=== PATIENT | female | born 1930 | race Caucasian/White ===

== ENCOUNTER 2016-09-19 14:38 | Emergency (ER) | payer MEDICARE ==
[~2016-09-19] VITALS: Ht 167.6 cm; Wt 65.8 kg
[~2016-09-19 14:38] MED LIST: ACET-654 PO; AMLO5TAB2 PO; ATIV1TAB10 PO; ATOR1TAB19 PO; CHLO25TA3 PO; COUM1TAB19 PO; DIGO0.127 PO; FERG1TAB PO; GABA-283 PO; LIPI10TA PO; LOPR1TAB7 PO; LORA0.5T PO; LOSA100T36 PO; METO25TA2 PO; MOM30SS PO; MYRB25TA PO; NAPR250T2 PO; NORV5TAB PO; OMEP20CA3 PO; PERCOCET PO; POTA20PO4 PO; REST0.05 OU; TRUSOPT OU; ULTR50TA PO; VITA500C24 PO; VITAD1000T OR; WARF1TAB35 PO; WARF4TAB28 PO; [UNRECOGNIZED DRUG - CODE] OS; calcium with D OR; celebrex; hygroton PO; timolol OU
[2016-09-19] MEDS ORDERED: SPIR25TA2 PO (15:04)
[2016-09-19] MEDS ORDERED: GLIP-163 PO (15:04)
[2016-09-19] MEDS ORDERED: LOSA25TA8 PO (15:09)
[2016-09-19] MEDS ORDERED: TORS10TA3 PO (15:09)
[2016-09-19] MEDS ORDERED: PROBCAP4 PO (15:09)
[2016-09-19] MEDS ORDERED: GLIP2.5T6 PO (15:09)
[2016-09-19] MEDS ORDERED: MORPHINE 2 MG/ML 1ML SYRINGE IV ONE (15:15)
[2016-09-19 15:33] LABS: BASO % 0.4 % (0.0-1.0); EOS # 0.2 K/mm3 (0.0-0.50); EOS % 2.6 % (0.0-3.0); LARGE UNSTAINED CELL # 0.2 K/mm3 (0.0-0.4); LARGE UNSTAINED CELL % 1.8 % (0.0-4.0); LYMPH # 1.7 K/mm3 (1.5-4.5); LYMPH % 19.9 % (24.0-44.0); MEAN CORPUSCULAR HEMOGLOBIN 30.1 pg (27.0-33.0); MEAN CORPUSCULAR VOLUME 91.3 fl (80.0-96.0); MONO # 0.4 K/mm3 (0.0-0.8); MONO % 4.7 % (0.0-5.0); NEUTROPHILS # 6.1 K/mm3 (1.8-7.7); NEUTROPHILS % 70.6 % (36.0-66.0); PLATELET COUNT, AUTOMATED 265 k/mm3 (150-450); RED CELL DISTRIBUTION WIDTH 12.9 % (11.5-14.5); WHITE BLOOD COUNT 8.7 K/mm3 (4.0-10.0)
[2016-09-19 15:39] LABS: INR 2.59
[2016-09-19 16:12] LABS: ANION GAP 7 MEQ/L (8-16); BLOOD UREA NITROGEN 24 MG/DL (7-18); CALCIUM LEVEL 9.3 MG/DL (8.8-10.2); CARBON DIOXIDE LEVEL 30 MEQ/L (21-32); CHLORIDE LEVEL 105 MEQ/L (98-107); CREATININE FOR GFR 0.92 MG/DL (0.55-1.02); DIGOXIN LEVEL 0.8 NG/ML (0.5-2.0); GLOMERULAR FILTRATION RATE > 60.0 (>32); GLUCOSE, FASTING 217 MG/DL (83-110); POTASSIUM SERUM 3.9 MEQ/L (3.5-5.1); SODIUM LEVEL 142 MEQ/L (136-145)
[2016-09-19] MEDS ORDERED: ISOVUE-370 76% 100ML VIAL (Q9967) As Ordered ONE (16:14)
--- NOTE | 2016-09-19 17:23 | REP ---
CT LUMBAR SPINE WITHOUT CONTRAST: HISTORY: Trauma. COMPARISON: MR 10/05/2015 A diffuse disc bulge is present at the L1-2 level. There are 2 mm of retrolisthesis of L1 on 2. There is minimal compression of the thecal sac. There is hypertrophy of the posterior articulating facets. The L1 nerves exit the neural foramina without compression. A diffuse disc bulge is present at the L2-3 level. There is hypertrophy of the ligamenta flava and posterior articulating facets. These findings produce mild central canal stenosis. There is compression of the L2 nerves in the neural foramina. A diffuse disc bulge is present at the L3-4 level. There is hypertrophy of the ligamenta flava and posterior articulating facets. These findings produce mild central canal stenosis. There is compression of the right L3 nerve in the neural foramen . The left L3 nerve exits the neural foramen without compression. A diffuse disc bulge is present at the L4-5 level. There is minimal compression of the thecal sac. There is hypertrophy of the posterior articulating facets. There are 3 mm of grade 1 spondylolisthesis of L4 on 5. The L4 nerves exit the neural foramina without compression. A laminectomy defect is present. The L5-S1 level is incompletely seen. There is hypertrophy of the posterior articulating facets. The L5 nerve exit the neural foramina without compression. The intervertebral discs are decreased in height. Vacuum phenomenon is present at the L2-3 and L3-4 levels. These findings are consistent with disc degeneration. There are old compression fractures of the L1 and L3 vertebral bodies with minimal and mild height loss respectively. There is scoliosis convex to the right. IMPRESSION: 1. Diffuse disc bulge and retrolisthesis at the L1-2 level with minimal thecal sac compression. 2. Mild central canal stenosis at the L2-3 and L3-4 levels secondary to disc bulge, ligamentous, and facet hypertrophy. There is compression of the right L3 nerve in the neural foramen . 3. Diffuse disc bulge at the L4-5 level with minimal thecal sac compression. The laminectomy defect is a new finding. 4. Old compression fractures at the L1 and L3 vertebral bodies. Signed by David Pena MD 09/20/2016 09:06 A
--- NOTE | 2016-09-19 17:50 | REP ---
CT ABDOMEN AND PELVIS WITH IV CONTRAST: TECHNIQUE: Axial contrast enhanced images from the lung bases to the pubic symphysis using 100 mL Isovue 370 intravenous contrast material with multiplanar reformations. Visualized lung bases demonstrate interstitial fibrotic changes. The liver is unremarkable. The patient has had a cholecystectomy. There is mild prominence of the biliary system which is normal in a patient of this age, status post cholecystectomy. The spleen is intact. The adrenals and pancreas appear unremarkable. No renal laceration is seen. There is a left renal cyst. There is no hydronephrosis. There is no abdominal aortic aneurysm. There is no adenopathy, free air or free fluid. There is no bowel wall thickening. I see no pelvic mass. Portions of the inferior pelvis are not well seen due to bilateral metallic prostheses of the hips. The visualized osseous structures appear intact. Old compression deformity of L3 is unchanged since prior MRI of 10/05/2015. There are degenerative changes of the spine and the patient has had a prior lower lumbar laminectomy. IMPRESSION: No free air or free fluid. No evidence of visceral organ injury. No evidence of acute fracture of the visualized osseous structures. Signed by Royer Sigala MD 09/19/2016 08:13 P
[2016-09-19 17:57] VITALS: BP 192/84
--- NOTE | 2016-09-21 11:35 | ED PDOC ---
Post-Departure Follow-Up radiology report faxed to PCP, Lea Conklin MD Sep 21, 2016 11:35
== END 2016-09-19 17:46 | disposition home or self-care (01) ==
LOC: EDBD 14:38 → M ED 16:25
DX: S30.1XXA Contusion of abdominal wall, initial encounter (principal); W01.0XXA Fall on same level from slipping, tripping and stumbling without subsequent striking against object, initial encounter; Y92.531 Health care provider office as the place of occurrence of the external cause; Y93.01 Activity, walking, marching and hiking; Y99.9 Unspecified external cause status; I10 Essential (primary) hypertension; I48.91 Unspecified atrial fibrillation; M51.26 Other intervertebral disc displacement, lumbar region; M48.06 Spinal stenosis, lumbar region; Z87.310 Personal history of (healed) osteoporosis fracture; Z79.01 Long term (current) use of anticoagulants; Z79.899 Other long term (current) drug therapy; Z88.8 Allergy status to other drugs, medicaments and biological substances; Z88.1 Allergy status to other antibiotic agents
CPT/HCPCS: 72131; 74177; 80048; 80162; 85025; 85610; 85730; 96374; 99283; Q9967

== ENCOUNTER → 2016-10-06 | Outpatient (REF) | payer MEDICARE ==
[~2016-10-06] MED LIST changes: +GLIP-163 PO; +GLIP2.5T6 PO; +LOSA25TA8 PO; +PROBCAP4 PO; +SPIR25TA2 PO; +TORS10TA3 PO
== END ==
LOC: M LAB REF 12:00
PROVIDERS: ATTEND Physician Assistant
DX: R31.0 Gross hematuria (principal)

== ENCOUNTER → 2018-04-04 | Outpatient (REF) ==
[2018-04-04 09:44] LABS: HEMATOCRIT 26.4 % (36.0-47.0); HEMOGLOBIN 7.9 g/dl (12.0-15.5); MEAN CORPUSCULAR HEMOGLOBIN 28.8 pg (27.0-33.0); MEAN CORPUSCULAR HGB CONC 29.9 g/dl (32.0-36.5); MEAN CORPUSCULAR VOLUME 96.4 fl (80.0-96.0); PLATELET COUNT, AUTOMATED 280 10^3/uL (150-450); RED BLOOD COUNT 2.74 10^6/uL (4.00-5.40); RED CELL DISTRIBUTION WIDTH 13.9 % (11.5-14.5); WHITE BLOOD COUNT 11.6 10^3/uL (4.0-10.0)
[2018-04-04 10:10] LABS: ANION GAP 8 MEQ/L (8-16); BLOOD UREA NITROGEN 26 MG/DL (7-18); CALCIUM LEVEL 9.9 MG/DL (8.8-10.2); CARBON DIOXIDE LEVEL 30 MEQ/L (21-32); CHLORIDE LEVEL 106 MEQ/L (98-107); CREATININE FOR GFR 0.65 MG/DL (0.55-1.30); GLOMERULAR FILTRATION RATE > 60.0 (>32); GLUCOSE, FASTING 123 MG/DL (70-100); POTASSIUM SERUM 4.1 MEQ/L (3.5-5.1); SODIUM LEVEL 144 MEQ/L (136-145)
== END ==
DX: I48.91 Unspecified atrial fibrillation (principal)

== ENCOUNTER → 2018-04-05 | Outpatient (REF) ==
[2018-04-05 12:20] LABS: IRON (FE) 29 UG/DL (50-170); PERCENT SATURATION 11.1 % (13.2-45.0); TOTAL IRON BINDING CAPACITY 262 UG/DL (250-450)
[2018-04-06 11:39] LABS: TRANSFERRIN 208 mg/dL (200-370)
== END ==
DX: D64.9 Anemia, unspecified (principal)

== ENCOUNTER → 2018-04-06 | Outpatient (REF) ==
[2018-04-06 07:17] LABS: HEMATOCRIT 27.2 % (36.0-47.0); HEMOGLOBIN 8.5 g/dl (12.0-15.5); MEAN CORPUSCULAR HEMOGLOBIN 29.7 pg (27.0-33.0); MEAN CORPUSCULAR HGB CONC 31.3 g/dl (32.0-36.5); MEAN CORPUSCULAR VOLUME 95.1 fl (80.0-96.0); PLATELET COUNT, AUTOMATED 398 10^3/uL (150-450); RED BLOOD COUNT 2.86 10^6/uL (4.00-5.40); RED CELL DISTRIBUTION WIDTH 13.8 % (11.5-14.5)
== END ==
DX: D64.9 Anemia, unspecified (principal)

== ENCOUNTER → 2018-04-09 | Outpatient (REF) ==
[2018-04-09 07:42] LABS: HEMATOCRIT 28.7 % (36.0-47.0); MEAN CORPUSCULAR HEMOGLOBIN 29.4 pg (27.0-33.0); MEAN CORPUSCULAR HGB CONC 31.4 g/dl (32.0-36.5); MEAN CORPUSCULAR VOLUME 93.8 fl (80.0-96.0); PLATELET COUNT, AUTOMATED 419 10^3/uL (150-450); RED BLOOD COUNT 3.06 10^6/uL (4.00-5.40); RED CELL DISTRIBUTION WIDTH 13.7 % (11.5-14.5); WHITE BLOOD COUNT 11.2 10^3/uL (4.0-10.0)
== END ==
DX: D64.9 Anemia, unspecified (principal)

== ENCOUNTER → 2018-04-10 | Outpatient (REF) ==
[2018-04-10 11:58] LABS: HEMATOCRIT 29.7 % (36.0-47.0); HEMOGLOBIN 9.2 g/dl (12.0-15.5); MEAN CORPUSCULAR HEMOGLOBIN 28.9 pg (27.0-33.0); MEAN CORPUSCULAR VOLUME 93.4 fl (80.0-96.0); PLATELET COUNT, AUTOMATED 478 10^3/uL (150-450); RED BLOOD COUNT 3.18 10^6/uL (4.00-5.40); WHITE BLOOD COUNT 13.1 10^3/uL (4.0-10.0)
[2018-04-10 12:28] LABS: ANION GAP 7 MEQ/L (8-16); BLOOD UREA NITROGEN 14 MG/DL (7-18); CALCIUM LEVEL 9.2 MG/DL (8.8-10.2); CARBON DIOXIDE LEVEL 31 MEQ/L (21-32); CHLORIDE LEVEL 100 MEQ/L (98-107); CREATININE FOR GFR 0.76 MG/DL (0.55-1.30); GLOMERULAR FILTRATION RATE > 60.0 (>32); GLUCOSE, FASTING 171 MG/DL (70-100); POTASSIUM SERUM 4.3 MEQ/L (3.5-5.1); SODIUM LEVEL 138 MEQ/L (136-145)
[2018-04-10 12:32] LABS: INR 3.08; PROTHROMBIN TIME 32.4 SECONDS (12.1-14.4)
== END ==
DX: I48.91 Unspecified atrial fibrillation (principal)

== ENCOUNTER → 2018-04-12 | Outpatient (REF) ==
[2018-04-12 09:45] LABS: HEMATOCRIT 31.6 % (36.0-47.0); HEMOGLOBIN 9.7 g/dl (12.0-15.5); MEAN CORPUSCULAR HEMOGLOBIN 28.7 pg (27.0-33.0); MEAN CORPUSCULAR HGB CONC 30.7 g/dl (32.0-36.5); MEAN CORPUSCULAR VOLUME 93.5 fl (80.0-96.0); PLATELET COUNT, AUTOMATED 492 10^3/uL (150-450); RED BLOOD COUNT 3.38 10^6/uL (4.00-5.40); RED CELL DISTRIBUTION WIDTH 13.9 % (11.5-14.5); WHITE BLOOD COUNT 10.3 10^3/uL (4.0-10.0)
[2018-04-12 09:59] LABS: INR 3.05; PROTHROMBIN TIME 32.2 SECONDS (12.1-14.4)
== END ==
DX: I48.91 Unspecified atrial fibrillation (principal)

== ENCOUNTER → 2018-04-17 | Outpatient (REF) ==
[2018-04-17 10:48] LABS: HEMATOCRIT 33.2 % (36.0-47.0); HEMOGLOBIN 10.2 g/dl (12.0-15.5); MEAN CORPUSCULAR HEMOGLOBIN 28.3 pg (27.0-33.0); MEAN CORPUSCULAR HGB CONC 30.7 g/dl (32.0-36.5); MEAN CORPUSCULAR VOLUME 92.2 fl (80.0-96.0); PLATELET COUNT, AUTOMATED 448 10^3/uL (150-450); RED CELL DISTRIBUTION WIDTH 13.9 % (11.5-14.5)
[2018-04-17 10:52] LABS: INR 2.88; PROTHROMBIN TIME 30.8 SECONDS (12.1-14.4)
[2018-04-17 11:11] LABS: ANION GAP 8 MEQ/L (8-16); BLOOD UREA NITROGEN 14 MG/DL (7-18); CALCIUM LEVEL 9.5 MG/DL (8.8-10.2); CARBON DIOXIDE LEVEL 32 MEQ/L (21-32); CHLORIDE LEVEL 95 MEQ/L (98-107); CREATININE FOR GFR 0.82 MG/DL (0.55-1.30); GLOMERULAR FILTRATION RATE > 60.0 (>32); GLUCOSE, FASTING 141 MG/DL (70-100); POTASSIUM SERUM 4.5 MEQ/L (3.5-5.1); SODIUM LEVEL 135 MEQ/L (136-145)
== END ==
DX: I48.91 Unspecified atrial fibrillation (principal)

== ENCOUNTER → 2018-04-18 | Outpatient (REF) | payer MEDICARE ==
[2018-04-18 10:35] LABS: INR 3.26
== END ==
DX: I48.91 Unspecified atrial fibrillation (principal)
CPT/HCPCS: 85610

== ENCOUNTER → 2018-04-23 | Outpatient (REF) ==
[2018-04-23 09:46] LABS: INR 2.07; PROTHROMBIN TIME 23.7 SECONDS (12.1-14.4)
== END ==
DX: I48.91 Unspecified atrial fibrillation (principal)

== ENCOUNTER → 2018-04-24 | Outpatient (REF) ==
[2018-04-24 09:45] LABS: HEMATOCRIT 31.1 % (36.0-47.0); HEMOGLOBIN 9.5 g/dl (12.0-15.5); MEAN CORPUSCULAR HGB CONC 30.5 g/dl (32.0-36.5); MEAN CORPUSCULAR VOLUME 91.7 fl (80.0-96.0); PLATELET COUNT, AUTOMATED 363 10^3/uL (150-450); RED BLOOD COUNT 3.39 10^6/uL (4.00-5.40); RED CELL DISTRIBUTION WIDTH 13.7 % (11.5-14.5); WHITE BLOOD COUNT 9.4 10^3/uL (4.0-10.0)
[2018-04-24 10:08] LABS: ANION GAP 6 MEQ/L (8-16); BLOOD UREA NITROGEN 15 MG/DL (7-18); CALCIUM LEVEL 9.4 MG/DL (8.8-10.2); CARBON DIOXIDE LEVEL 32 MEQ/L (21-32); CHLORIDE LEVEL 97 MEQ/L (98-107); CREATININE FOR GFR 0.68 MG/DL (0.55-1.30); GLOMERULAR FILTRATION RATE > 60.0 (>32); GLUCOSE, FASTING 97 MG/DL (70-100); POTASSIUM SERUM 4.8 MEQ/L (3.5-5.1); SODIUM LEVEL 135 MEQ/L (136-145)
== END ==
DX: I48.91 Unspecified atrial fibrillation (principal)

== ENCOUNTER → 2018-04-25 | Outpatient (REF) ==
[2018-04-25 09:48] LABS: INR 1.46
== END ==
DX: I48.91 Unspecified atrial fibrillation (principal)

== ENCOUNTER → 2018-04-25 | Outpatient (REF) | DX: I48.91 Unspecified atrial fibrillation (principal) ==

== ENCOUNTER → 2018-04-26 | Outpatient (REF) ==
[2018-04-26 10:10] LABS: INR 1.76; PROTHROMBIN TIME 20.8 SECONDS (12.1-14.4)
== END ==
DX: I48.91 Unspecified atrial fibrillation (principal)

== ENCOUNTER → 2018-04-30 | Outpatient (REF) ==
[2018-04-30 10:00] LABS: INR 2.41; PROTHROMBIN TIME 26.8 SECONDS (12.1-14.4)
== END ==
DX: I48.91 Unspecified atrial fibrillation (principal); Z79.01 Long term (current) use of anticoagulants

== ENCOUNTER → 2018-05-01 | Outpatient (REF) ==
[2018-05-01 10:02] LABS: HEMATOCRIT 34.8 % (36.0-47.0); HEMOGLOBIN 10.6 g/dl (12.0-15.5); MEAN CORPUSCULAR HEMOGLOBIN 28.2 pg (27.0-33.0); MEAN CORPUSCULAR HGB CONC 30.5 g/dl (32.0-36.5); MEAN CORPUSCULAR VOLUME 92.6 fl (80.0-96.0); PLATELET COUNT, AUTOMATED 420 10^3/uL (150-450); RED BLOOD COUNT 3.76 10^6/uL (4.00-5.40); RED CELL DISTRIBUTION WIDTH 13.6 % (11.5-14.5); WHITE BLOOD COUNT 10.2 10^3/uL (4.0-10.0)
[2018-05-01 10:31] LABS: ANION GAP 9 MEQ/L (8-16); BLOOD UREA NITROGEN 15 MG/DL (7-18); CALCIUM LEVEL 9.2 MG/DL (8.8-10.2); CARBON DIOXIDE LEVEL 30 MEQ/L (21-32); CHLORIDE LEVEL 100 MEQ/L (98-107); CREATININE FOR GFR 0.78 MG/DL (0.55-1.30); GLOMERULAR FILTRATION RATE > 60.0 (>32); GLUCOSE, FASTING 169 MG/DL (70-100); POTASSIUM SERUM 4.1 MEQ/L (3.5-5.1); SODIUM LEVEL 139 MEQ/L (136-145)
[2018-05-01 10:38] LABS: DIGOXIN LEVEL 0.9 NG/ML (0.5-2.0)
== END ==
DX: I48.91 Unspecified atrial fibrillation (principal)

== ENCOUNTER → 2018-05-03 | Outpatient (REF) ==
[2018-05-03 11:04] LABS: INR 2.08; PROTHROMBIN TIME 23.7 SECONDS (12.1-14.4)
== END ==
DX: Z79.01 Long term (current) use of anticoagulants (principal); D64.9 Anemia, unspecified

== ENCOUNTER → 2018-05-19 | Outpatient (REF) | payer MEDICARE ==
[2018-05-19 14:51] LABS: APPEARANCE, URINE CLOUDY (CLEAR); BACTERIA, URINE AUTO 2+ (NEGATIVE); BILIRUBIN, URINE AUTO NEGATIVE (NEGATIVE); BLOOD, URINE BLOOD 1+ (NEGATIVE); COLOR, URINE YELLOW (YELLOW); GLUCOSE, URINE (UA) AUTO NEGATIVE (NEGATIVE); KETONE, URINE AUTO NEGATIVE (NEGATIVE); LEUKOCYTE ESTERASE, URINE AUTO 3+ (NEGATIVE); NITRITE, URINE AUTO POSITIVE (NEGATIVE); PROTEIN, URINE AUTO 1+ mg/dL (NEGATIVE); RBC, URINE AUTO 54 /HPF (0-3); SPECIFIC GRAVITY URINE AUTO 1.009 (1.002-1.035); SQUAMOUS EPITHELIAL CELL UR AU 1 /HPF (0-6); UROBILINOGEN, URINE AUTO 0.2 mg/dL (0.0-2.0); WBC, URINE AUTO TNTC /HPF (0-3)
== END ==
DX: R41.82 Altered mental status, unspecified (principal)
CPT/HCPCS: 81001

== ENCOUNTER → 2018-06-05 | Outpatient (REF) | payer MEDICARE ==
[~2018-06-05] MED LIST changes: -GABA-283 PO; +GABA-845 PO; +LOSA25TA14 PO; -LOSA25TA8 PO; +SPIR-10 PO; -SPIR25TA2 PO
[2018-06-05 10:04] LABS: HEMATOCRIT 36.8 % (36.0-47.0); HEMOGLOBIN 11.1 g/dl (12.0-15.5); MEAN CORPUSCULAR HEMOGLOBIN 27.3 pg (27.0-33.0); MEAN CORPUSCULAR HGB CONC 30.2 g/dl (32.0-36.5); MEAN CORPUSCULAR VOLUME 90.6 fl (80.0-96.0); PLATELET COUNT, AUTOMATED 343 10^3/uL (150-450); RED BLOOD COUNT 4.06 10^6/uL (4.00-5.40); WHITE BLOOD COUNT 10.5 10^3/uL (4.0-10.0)
[2018-06-05 10:29] LABS: BLOOD UREA NITROGEN 11 MG/DL (7-18); CARBON DIOXIDE LEVEL 28 MEQ/L (21-32); CHLORIDE LEVEL 105 MEQ/L (98-107); CREATININE FOR GFR 0.65 MG/DL (0.55-1.30); GLOMERULAR FILTRATION RATE > 60.0 (>32); GLUCOSE, FASTING 132 MG/DL (70-100); POTASSIUM SERUM 4.3 MEQ/L (3.5-5.1); SODIUM LEVEL 144 MEQ/L (136-145)
== END ==
PROVIDERS: ATTEND Internal Medicine
DX: I48.91 Unspecified atrial fibrillation (principal)

== ENCOUNTER → 2018-07-04 | Outpatient (REF) | payer MEDICARE ==
[2018-07-04 09:19] LABS: INR 1.58; PROTHROMBIN TIME 19.1 SECONDS (12.1-14.4)
== END ==
PROVIDERS: ATTEND Internal Medicine
DX: I48.91 Unspecified atrial fibrillation (principal)

== ENCOUNTER → 2018-07-06 | Outpatient (REF) | payer MEDICARE ==
[2018-07-06 08:07] LABS: INR 1.76; PROTHROMBIN TIME 20.8 SECONDS (12.1-14.4)
== END ==
PROVIDERS: ATTEND Internal Medicine
DX: I48.91 Unspecified atrial fibrillation (principal)

== ENCOUNTER → 2018-07-09 | Outpatient (REF) | payer MEDICARE ==
[2018-07-09 07:40] LABS: INR 1.61; PROTHROMBIN TIME 19.4 SECONDS (12.1-14.4)
== END ==
PROVIDERS: ATTEND Internal Medicine
DX: I48.91 Unspecified atrial fibrillation (principal)

== ENCOUNTER → 2018-07-11 | Outpatient (REF) | payer SELFPAY ==
[2018-07-11 09:05] LABS: HEMATOCRIT 37.9 % (36.0-47.0); HEMOGLOBIN 11.8 g/dl (12.0-15.5); MEAN CORPUSCULAR HEMOGLOBIN 28.4 pg (27.0-33.0); MEAN CORPUSCULAR HGB CONC 31.1 g/dl (32.0-36.5); MEAN CORPUSCULAR VOLUME 91.1 fl (80.0-96.0); PLATELET COUNT, AUTOMATED 312 10^3/uL (150-450); RED BLOOD COUNT 4.16 10^6/uL (4.00-5.40); WHITE BLOOD COUNT 8.5 10^3/uL (4.0-10.0)
[2018-07-11 09:27] LABS: INR 1.66; PROTHROMBIN TIME 19.9 SECONDS (12.1-14.4)
[2018-07-11 09:30] LABS: BLOOD UREA NITROGEN 17 MG/DL (7-18); CALCIUM LEVEL 9.8 MG/DL (8.8-10.2); CARBON DIOXIDE LEVEL 28 MEQ/L (21-32); CHLORIDE LEVEL 102 MEQ/L (98-107); CREATININE FOR GFR 0.87 MG/DL (0.55-1.30); GLOMERULAR FILTRATION RATE > 60.0 (>32); GLUCOSE, FASTING 135 MG/DL (70-100); POTASSIUM SERUM 4.2 MEQ/L (3.5-5.1); SODIUM LEVEL 138 MEQ/L (136-145)
== END ==
PROVIDERS: ATTEND Internal Medicine
DX: I48.91 Unspecified atrial fibrillation (principal)

== ENCOUNTER → 2018-07-13 | Outpatient (REF) ==
[2018-07-13 10:55] LABS: INR 1.77; PROTHROMBIN TIME 20.9 SECONDS (12.1-14.4)
== END ==
PROVIDERS: ATTEND Internal Medicine
DX: I48.91 Unspecified atrial fibrillation (principal)

== ENCOUNTER → 2018-07-16 | Outpatient (REF) ==
[2018-07-16 13:53] LABS: INR 1.97; PROTHROMBIN TIME 22.8 SECONDS (12.1-14.4)
== END ==
PROVIDERS: ATTEND Internal Medicine
DX: I48.91 Unspecified atrial fibrillation (principal)

== ENCOUNTER → 2018-07-18 | Outpatient (REF) | payer MEDICARE ==
[2018-07-18 09:33] LABS: INR 2.06; PROTHROMBIN TIME 23.6 SECONDS (12.1-14.4)
== END ==
PROVIDERS: ATTEND Internal Medicine
DX: I48.91 Unspecified atrial fibrillation (principal)

== ENCOUNTER → 2018-08-07 | Outpatient (REF) | payer MEDICARE ==
[2018-08-07 10:47] LABS: INR 3.32; PROTHROMBIN TIME 34.5 SECONDS (12.1-14.4)
== END ==
DX: I48.91 Unspecified atrial fibrillation (principal)

== ENCOUNTER → 2018-08-14 | Outpatient (REF) | payer MEDICARE ==
[2018-08-14 10:15] LABS: INR 2.73; PROTHROMBIN TIME 29.5 SECONDS (12.1-14.4)
== END ==
DX: I48.91 Unspecified atrial fibrillation (principal)

== ENCOUNTER 2018-09-12 17:18 | Emergency (ER) | payer MEDICARE ==
[~2018-09-12] VITALS: Ht 167.6 cm; Wt 57.7 kg
[~2018-09-12 17:18] MED LIST changes: -FERG1TAB PO; +FERG27TA PO
--- NOTE | 2018-09-12 18:21 | REP ---
Chest semi upright AP and lateral views: Comparison is 02/04/2013. The lung andrews are clear. Cardiac size is enlarged, unchanged. The stanford, mediastinum, skeletal structures are unremarkable. Impression: Chronic cardiomegaly. No acute cardiopulmonary findings. Electronically Signed by Royer Camarillo MD 09/12/2018 06:13 P
[2018-09-12] MEDS ORDERED: ACETAMINOPHEN TAB 650MG DOSE (2X325MG) PO ONE (19:00)
[2018-09-12 19:18] LABS: BASO % 0.1 % (0.0-1.0); EOS % 0.1 % (0.0-3.0); HEMATOCRIT 36.9 % (36.0-47.0); HEMOGLOBIN 11.3 g/dl (12.0-15.5); LYMPH # 0.9 10^3/uL (1.5-4.5); LYMPH % 11.9 % (24.0-44.0); MEAN CORPUSCULAR HEMOGLOBIN 28.3 pg (27.0-33.0); MEAN CORPUSCULAR HGB CONC 30.6 g/dl (32.0-36.5); MEAN CORPUSCULAR VOLUME 92.5 fl (80.0-96.0); MONO % 12.9 % (0.0-5.0); NEUTROPHILS # 5.9 10^3/uL (1.8-7.7); NEUTROPHILS % 74.5 % (36.0-66.0); PLATELET COUNT, AUTOMATED 236 10^3/uL (150-450); RED BLOOD COUNT 3.99 10^6/uL (4.00-5.40); WHITE BLOOD COUNT 7.9 10^3/uL (4.0-10.0)
[2018-09-12 19:42] LABS: INFLUENZA A AMPLIFICATION POSITIVE (NEGATIVE); INFLUENZA B AMPLIFICATION NEGATIVE (NEGATIVE)
[2018-09-12 20:36] LABS: ALBUMIN 3.6 GM/DL (3.2-5.2); ALT/SGPT 21 U/L (12-78); BILIRUBIN,DIRECT 0.1 MG/DL (0.0-0.2); BILIRUBIN,TOTAL 0.4 MG/DL (0.2-1.0); BLOOD UREA NITROGEN 21 MG/DL (7-18); CALCIUM LEVEL 9.1 MG/DL (8.8-10.2); CARBON DIOXIDE LEVEL 28 MEQ/L (21-32); CHLORIDE LEVEL 101 MEQ/L (98-107); CPK CREATINE PHOSPHOKINASE 58 U/L (26-192); CREATININE FOR GFR 0.77 MG/DL (0.55-1.30); GLOMERULAR FILTRATION RATE > 60.0 (>32); GLUCOSE, FASTING 137 MG/DL (70-100); MB/CK RELATIVE INDEX 2.93 (< OR =4); POTASSIUM SERUM 4.1 MEQ/L (3.5-5.1); SODIUM LEVEL 135 MEQ/L (136-145); TOTAL PROTEIN 6.8 GM/DL (6.4-8.2); TROPONIN I 0.03 NG/ML (< 0.10)
[2018-09-12] MEDS ORDERED: OSEL75CA PO (20:44)
[2018-09-12 21:03] VITALS: BP 119/58
[2018-09-12] MEDS ORDERED: OSELTAMIVIR PHOSPHATE 75 MG CAP (TAMIFLU) PO ONE (21:30)
--- NOTE | 2018-09-13 21:40 | ECGEPIP ---
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
== END 2018-09-12 21:47 | disposition home or self-care (01) ==
LOC: M ED 17:18
DX: J09.X2 Influenza due to identified novel influenza A virus with other respiratory manifestations (principal); I48.91 Unspecified atrial fibrillation; I10 Essential (primary) hypertension; J44.9 Chronic obstructive pulmonary disease, unspecified; F41.9 Anxiety disorder, unspecified; M48.00 Spinal stenosis, site unspecified; I51.7 Cardiomegaly; Z79.01 Long term (current) use of anticoagulants; Z79.899 Other long term (current) drug therapy; Z88.8 Allergy status to other drugs, medicaments and biological substances

== ENCOUNTER 2018-09-14 10:19 | Inpatient (IN) | payer MEDICARE ==
[~2018-09-14] VITALS: Ht 154.9 cm; Wt 55.9 kg
[2018-09-14] MEDS: TIMOLOL MALEATE 0.5% OPHTH SOLN 5 ML OU SCH (09:00)
[2018-09-14] MEDS: METOPROLOL TART 25 MG TABLET PO SCH ×2 (09:00→20:23)
[~2018-09-14 10:19] MED LIST changes: +OSEL75CA PO; +OSELTAMIVIR PHOSPHATE 30MG CAPSULE PO SCH
[2018-09-14] MEDS ORDERED: ALBUTEROL SULFATE 2.5 MG/0.5 ML INH NEB SOLN INH ONE (10:30)
[2018-09-14] MEDS ORDERED: METO25TA4 PO (10:57)
[2018-09-14] MEDS ORDERED: ATOR1TAB19 PO (10:57)
[2018-09-14] MEDS ORDERED: AKWA1OIN OU (10:57)
[2018-09-14] MEDS ORDERED: FERR1TAB8 PO (10:57)
[2018-09-14] MEDS ORDERED: COUM1TAB14 PO (10:57)
[2018-09-14] MEDS ORDERED: OSEL75CA PO (10:57)
[2018-09-14] MEDS ORDERED: TIMO0.5S39 OU (10:57)
[2018-09-14] MEDS ORDERED: LORA0.5T11 PO (10:57)
[2018-09-14] MEDS ORDERED: VITA-158 PO (10:57)
[2018-09-14] MEDS ORDERED: ACET-907 PO (10:57)
[2018-09-14] MEDS ORDERED: DIGO0.12 PO (10:57)
[2018-09-14] MEDS ORDERED: SPIR-10 PO (10:57)
[2018-09-14] MEDS ORDERED: LOSA25TA14 PO (10:57)
[2018-09-14] MEDS ORDERED: D-20TAB PO (10:57)
[2018-09-14] MEDS ORDERED: ARTI99.0 OU (10:57)
[2018-09-14] MEDS ORDERED: MULTCAP PO (10:57)
[2018-09-14] MEDS ORDERED: PRESCAP4 PO (10:57)
[2018-09-14] MEDS ORDERED: MOM30SS PO (10:57)
[2018-09-14] MEDS ORDERED: TORS10TA3 PO (10:57)
[2018-09-14 11:12] LABS: BASO % 0.4 % (0.0-1.0); HEMATOCRIT 35.5 % (36.0-47.0); HEMOGLOBIN 11.2 g/dl (12.0-15.5); LYMPH # 1.5 10^3/uL (1.5-4.5); LYMPH % 31.5 % (24.0-44.0); MEAN CORPUSCULAR HGB CONC 31.5 g/dl (32.0-36.5); MONO # 0.8 10^3/uL (0.0-0.8); MONO % 15.9 % (0.0-5.0); NEUTROPHILS # 2.4 10^3/uL (1.8-7.7); NEUTROPHILS % 51.6 % (36.0-66.0); PLATELET COUNT, AUTOMATED 207 10^3/uL (150-450); RED BLOOD COUNT 3.86 10^6/uL (4.00-5.40); WHITE BLOOD COUNT 4.7 10^3/uL (4.0-10.0)
[2018-09-14 11:23] LABS: INR 1.97; PROTHROMBIN TIME 22.8 SECONDS (12.1-14.4)
[2018-09-14 11:24] LABS: PARTIAL THROMBOPLASTIN TIME 37.3 SECONDS (25.4-37.6)
[2018-09-14 11:29] LABS: INFLUENZA A AMPLIFICATION POSITIVE (NEGATIVE); INFLUENZA B AMPLIFICATION NEGATIVE (NEGATIVE)
--- NOTE | 2018-09-14 11:31 | REP ---
Portable chest, 10:43 a.m., single AP view, the patient semi upright: Compared 09/12 2018. The lung andrews are clear. Is a skin fold artifact in the right hemithorax. Cardiac size is enlarged, unchanged. There are no pleural effusions. The stanford, mediastinum, skeletal structures are unchanged. There is advanced arthropathy of the right shoulder. Impression: Cardiomegaly, unchanged. Skin fold artifact on the right. No acute cardiopulmonary findings. Electronically Signed by Royer Camarillo MD 09/14/2018 11:23 A
[2018-09-14 11:48] LABS: BLOOD UREA NITROGEN 22 MG/DL (7-18); CARBON DIOXIDE LEVEL 28 MEQ/L (21-32); CHLORIDE LEVEL 101 MEQ/L (98-107); CREATININE FOR GFR 0.76 MG/DL (0.55-1.30); GLOMERULAR FILTRATION RATE > 60.0 (>32); GLUCOSE, FASTING 154 MG/DL (70-100); POTASSIUM SERUM 3.8 MEQ/L (3.5-5.1); SODIUM LEVEL 136 MEQ/L (136-145)
[2018-09-14 11:49] LABS: ALT/SGPT 27 U/L (12-78); CALCIUM LEVEL 9.2 MG/DL (8.8-10.2)
[2018-09-14 11:50] LABS: BILIRUBIN,DIRECT 0.1 MG/DL (0.0-0.2); BILIRUBIN,TOTAL 0.3 MG/DL (0.2-1.0); CK-MB VALUE MASS 1.9 NG/ML (<3.6); CPK CREATINE PHOSPHOKINASE 57 U/L (26-192); MB/CK RELATIVE INDEX 3.33 (< OR =4)
[2018-09-14 11:51] LABS: ALBUMIN 3.4 GM/DL (3.2-5.2); NT-PRO BNP 7176 PG/ML (<450); THYROID STIMULATING HORMONE 0.392 uIU/ML (0.358-3.740); THYROXINE (T4) 7.8 UG/DL (4.5-12.0); TOTAL PROTEIN 6.7 GM/DL (6.4-8.2); TROPONIN I 0.03 NG/ML (< 0.10)
[2018-09-14] MEDS ORDERED: ISOVUE-370 76% 100ML VIAL (Q9967) As Ordered ONE (12:17)
[2018-09-14 12:31] LABS: ABG BASE EXCESS 3.3 (-2.0-2.0); ABG PARTIAL PRESSURE CO2 43.5 mmHg (35.0-45.0); ABG PARTIAL PRESSURE O2 133.5 mmHg (75.0-100.0); ABG STANDARD HCO3 27.4 MEQ/L (22.0-26.0); ABG TOTAL CO2 29.4 MEQ/L (23.0-31.0); ABG pH (ARTERIAL) 7.427 UNITS (7.350-7.450)
[2018-09-14] MEDS ORDERED: FUROSEMIDE 20 MG/2 ML VIAL (J1940) IV ONE (12:45)
--- NOTE | 2018-09-14 13:44 | HPEPDOC ---
[facility] Medical History & Physical Date of Admission Sep 14, 2018 History and Physical CHIEF COMPLAINT: Cough HISTORY OF PRESENT ILLNESS: 87 yo female recently diagnosed with influenza, receiving Tamiflu therapy presents for several day history of worsening cough, relieved with sitting up, exacerbated with lying down. Denies shortness of breath, admits to dyspnea on exertion, denies chest pain. PAST MEDICAL HISTORY: 1. Afib 2. HTN 3. COPD ALLERGIES: Please see below. REVIEW OF SYSTEMS: As per HPI. HOME MEDICATIONS: Please see below. PHYSICAL EXAMINATION: General: elderly, frail, lying comfortably in bed HEENT: NC/AT, EOMI Lungs: diminished breath sounds, mild crackles b/l bases Heart: +S1S2, RRR Abd: soft, NT, +BS Ext: chronic venous stasis changes, trace peripheral edema LABORATORY DATA: See below. MICROBIOLOGY: Please see below. ASSESSMENT: 87 yo female for shortness of breath/cough, likely secondary to heart failure complicated with influenza in the setting of afib and COPD. #CHF - gentle diuresis with IV lasix - home torsemide on hold, continue aldactone - daily weights, I'O's - echocardiogram - telemetry monitoring #afib - continue BB, losartan - on coumadin - digoxin on hold - supratherapeutic #COPD - no wheezing noted #HTN - continue BB, losartan #DVT prophylaxis - on coumadin Vital Signs Vital Signs Date Time Temp Pulse Resp B/P (MAP) Pulse Ox O2 Delivery O2 Flow Rate FiO2 09/14/18 13:01 75 162/65 (97) 100 Nasal Cannula 2.0 09/14/18 10:29 98.4 22 Laboratory Data Labs 24H Laboratory Tests 2 09/14/18 10:39: Immature Granulocyte % (Auto) 0.6, White Blood Count 4.7, Red Blood Count 3.86L, Hemoglobin 11.2L, Hematocrit 35.5L, Mean Corpuscular Volume 92.0, Mean Corpuscular Hemoglobin 29.0, Mean Corpuscular Hemoglobin Concent 31.5L, Red Cell Distribution Width 13.2, Platelet Count 207, Neutrophils (%) (Auto) 51.6, Lymphocytes (%) (Auto) 31.5, Monocytes (%) (Auto) 15.9H, Eosinophils (%) (Auto) 0.0, Basophils (%) (Auto) 0.4, Neutrophils # (Auto) 2.4, Lymphocytes # (Auto) 1.5, Monocytes # (Auto) 0.8, Eosinophils # (Auto) 0.0, Basophils # (Auto) 0.0, Nucleated Red Blood Cells % (auto) 0.0, Lactic Acid Level 1.0, Digoxin Level 2.7*H, Influenza Type A (RT-PCR) POSITIVEH, Influenza Type B (RT-PCR) NEGATIVE 09/14/18 10:40: Prothrombin Time 22.8H, Prothromb Time International Ratio 1.97, Activated Partial Thromboplast Time 37.3, Anion Gap 7L, Glomerular Filtration Rate > 60.0, Calcium Level 9.2, Aspartate Amino Transf (AST/SGOT) 32, Alanine Aminotransferase (ALT/SGPT) 27, Alkaline Phosphatase 98, Total Bilirubin 0.3, Direct Bilirubin 0.1, Total Creatine Kinase 57, Creatine Kinase MB 1.9, Creatine Kinase MB Relative Index 3.33, Troponin I 0.03, ZZ-Viq-[id number]-Type Natriuretic Peptide 7176H, Total Protein 6.7, Albumin 3.4, Albumin/Globulin Ratio 1.03, Thyroid Stimulating Hormone (TSH) 0.392, Thyroxine (T4) 7.8 09/14/18 12:16: Blood Gas Bicarbonate Standard 27.4H, Arterial Blood pH 7.427, Arterial Blood Partial Pressure CO2 43.5, Arterial Blood Partial Pressure O2 133.5H, Arterial Blood Total CO2 29.4, Arterial Blood HCO3 28.0H, Arterial Blood Base Excess 3.3H, Arterial Blood Oxygen Saturation 99.0 CBC/BMP Laboratory Tests 09/14/18 10:39 Red Blood Count 3.86 L, Mean Corpuscular Volume 92.0, Mean Corpuscular He moglobin 29.0, Mean Corpuscular Hemoglobin Concent 31.5 L, Red Cell Distribution Width 13.2, Neutrophils (%) (Auto) 51.6, Lymphocytes (%) (Auto) 31.5, Monocytes (%) (Auto) 15.9 H, Eosinophils (%) (Auto) 0.0, Basophils (%) (Auto) 0.4, Neutrophils # (Auto) 2.4, Lymphocytes # (Auto) 1.5, Monocytes # (Auto) 0.8, Eosinophils # (Auto) 0.0, Basophils # (Auto) 0.0 09/14/18 10:40 Microbiology Microbiology 09/14/18 Blood Culture, Received Pending 09/14/18 Blood Culture, Received Pending Home Medications Scheduled Ascorbic Acid (Vitamin C) 500 Mg Tablet, 500 MG PO DAILY Atorvastatin Calcium (Atorvastatin Calcium) 10 Mg Tablet, 10 MG PO QHS Cholecalciferol (Vitamin D3) (Vitamin D3) 2,000 Unit Tablet, 2,000 UNIT PO QHS Digoxin (Digoxin) 125 Mcg Tablet, 125 MCG PO DAILY Ferrous Sulfate (Ferrous Sulfate) 325 Mg Tablet, 325 MG PO DAILY TAKES AT NOON Lorazepam (Lorazepam) 0.5 Mg Tablet, 0.25 MG PO BID Losartan Potassium (Losartan Potassium) 25 Mg Tablet, 12.5 MG PO QHS Metoprolol Tartrate (Metoprolol Tartrate) 25 Mg Tablet, 25 MG PO BID Mineral Oil/Petrolatum,White (Artificial Tears Eye Ointment) 3.5 Gm Oint...g., 1 DOSE OU QHS Multivitamin (Multivitamins) 1 Each Capsule, 1 CAP PO DAILY Oseltamivir Phosphate (Tamiflu) 75 Mg Capsule, 75 MG PO BID STARTED 09/13/18 FOR 5 DAYS Spironolactone (Spironolactone) 25 Mg Tablet, 25 MG PO DAILY Timolol Maleate (Timolol Maleate) 0.5% Drop.daily, 1 DROP OU DAILY Torsemide (Torsemide) 10 Mg Tablet, 10 MG PO DAILY Vit C/Vit E AC/Lut/Copper/Zinc (Preservision Lutein Softgel) 1 Each Capsule, 1 CAP PO BID Warfarin Sodium (Coumadin) 4 Mg Tablet, 4 MG PO 3XW QPM: MON, WED, FRI Scheduled PRN Acetaminophen (Tylenol) 325 Mg Tablet, 650 MG PO Q4H PRN for PAIN Milk Of Magnesia (Milk of Magnesia) 2,400 Mg/10 Ml Oral.susp, 15 ML PO DAILY PRN for CONSTIPATION Polyvinyl Alcohol (Artificial Tears) 15 Ml Drops, 1.4 % OU TID PRN for DRY EYES 1 DROP Allergies Coded Allergies: nitrofurantoin (Verified Allergy, Intermediate, HIVES, 09/12/18) Quinolones (Verified Allergy, Unknown, 09/12/18) lisinopril (Verified Adverse Reaction, Intermediate, cough, 09/12/18) phenylephrine (Verified Adverse Reaction, Mild, DIALETED PUPILS, 09/12/18) SUNIL LEBRON MD Sep 14, 2018 13:44
[2018-09-14] MEDS ORDERED: POLYVINYL ALCOHOL OPHTH SOLN 15 ML(LIQUITEARS) OU PRN (13:45)
[2018-09-14] MEDS ORDERED: MOM 30ML SUSPENSION UDC PO PRN (13:45)
[2018-09-14] MEDS ORDERED: ACETAMINOPHEN 325 MG TAB PO PRN (13:45)
--- NOTE | 2018-09-14 15:12 | REP ---
CT of the chest with IV contrast, CT pulmonary angiography protocol: There are no emboli in the pulmonary trunk or central pulmonary arteries. There are no emboli in the pulmonary lobe or segment branches. There are no infiltrates. No pleural effusions. There are tiny focal zones of atelectasis in the lingula and right middle lobe. There is no mediastinal, hilar or axillary lymph node enlargement. The thoracic aorta is unremarkable. Cardiac size is enlarged. There is no pericardial effusion. The visualized upper abdominal contents are unremarkable. Impression: No pulmonary emboli. No infiltrates or pleural effusions. Minor zones of atelectasis in the middle lobe and lingula. Cardiomegaly. Electronically Signed by Royer Camarillo MD 09/14/2018 03:03 P
[2018-09-14] MEDS ORDERED: PILL CRUSHER/CUTTER 1 EACH XX ONE (15:53)
[2018-09-14] MEDS: FERROUS SULFATE 325MG TAB PO SCH (15:57)
[2018-09-14] MEDS: LORazepam 0.5 MG TAB PO SCH ×2 (15:57→20:17)
[2018-09-14] MEDS ORDERED: OSELTAMIVIR PHOSPHATE 75 MG CAP (TAMIFLU) PO ONE (16:30)
[2018-09-14] MEDS: WARFARIN SOD 4 MG TAB PO SCH (18:32)
--- NOTE | 2018-09-14 19:31 | ECGEPIP ---
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
[2018-09-14] MEDS: VITAMIN D 1,000 INTERNATIONAL UNITS TABLET PO SCH (20:18)
[2018-09-14] MEDS: LOSARTAN 25 MG TAB PO SCH (20:18)
[2018-09-14] MEDS: ATORVASTATIN 10 MG TAB PO SCH (20:18)
[2018-09-14] MEDS: FUROSEMIDE 40 MG/4 ML VIAL (J1940) IV SCH (23:49)
[2018-09-15] VITALS (12 sets, daily range): BP systolic 115–186; BP diastolic 57–80; O2SAT 92–96
[2018-09-15 08:06] LABS: BASO % 0.2 % (0.0-1.0); EOS % 0.6 % (0.0-3.0); HEMATOCRIT 38.2 % (36.0-47.0); HEMOGLOBIN 11.9 g/dl (12.0-15.5); LYMPH # 1.8 10^3/uL (1.5-4.5); LYMPH % 35.3 % (24.0-44.0); MEAN CORPUSCULAR HEMOGLOBIN 28.2 pg (27.0-33.0); MEAN CORPUSCULAR HGB CONC 31.2 g/dl (32.0-36.5); MEAN CORPUSCULAR VOLUME 90.5 fl (80.0-96.0); MONO # 0.8 10^3/uL (0.0-0.8); MONO % 15.5 % (0.0-5.0); NEUTROPHILS # 2.4 10^3/uL (1.8-7.7); NEUTROPHILS % 48.2 % (36.0-66.0); PLATELET COUNT, AUTOMATED 210 10^3/uL (150-450); RED BLOOD COUNT 4.22 10^6/uL (4.00-5.40)
[2018-09-15 08:21] LABS: BLOOD UREA NITROGEN 21 MG/DL (7-18); CARBON DIOXIDE LEVEL 35 MEQ/L (21-32); CHLORIDE LEVEL 99 MEQ/L (98-107); CREATININE FOR GFR 0.81 MG/DL (0.55-1.30); GLOMERULAR FILTRATION RATE > 60.0 (>32); GLUCOSE, FASTING 106 MG/DL (70-100); POTASSIUM SERUM 3.6 MEQ/L (3.5-5.1); SODIUM LEVEL 139 MEQ/L (136-145)
[2018-09-15] MEDS: TIMOLOL MALEATE 0.5% OPHTH SOLN 5 ML OU SCH (09:00)
[2018-09-15] MEDS: METOPROLOL TART 25 MG TABLET PO SCH ×2 (09:48→20:11)
[2018-09-15] MEDS: LORazepam 0.5 MG TAB PO SCH ×2 (09:48→20:11)
[2018-09-15] MEDS: OSELTAMIVIR PHOSPHATE 30MG CAPSULE PO SCH ×2 (09:49→20:10)
[2018-09-15] MEDS: FERROUS SULFATE 325MG TAB PO SCH (09:49)
[2018-09-15] MEDS: FUROSEMIDE 40 MG/4 ML VIAL (J1940) IV SCH ×2 (13:02→23:51)
[2018-09-15] MEDS ORDERED: SLF 3 ML SYR IV PRN (18:00)
--- NOTE | 2018-09-15 18:20 | IPNPDOC ---
Text Note Date of Service The patient was seen on 09/15/18. NOTE Subjective: Patient seen and examined at bedside. No acute overnight events reported. Patient has no new medical complaints. Still complains of shortness of breath but feels this has improved. Objective: General: NAD, elderly, lying comfortably in bed HEENT: NC/AT, EOMI Lungs: diminished breath sounds, crackles b/l bases Abd: soft, NT, +BS Ext: chronic venous stasis changes, trace peripheral edema ASSESSMENT: 87 yo female for shortness of breath/cough, likely secondary to heart failure complicated with influenza in the setting of afib and COPD. #CHF - gentle diuresis with IV lasix - home torsemide on hold, continue aldactone - daily weights, I'O's - echocardiogram - telemetry monitoring #afib - continue BB, losartan - on coumadin - digoxin on hold - supratherapeutic #COPD - no wheezing noted #HTN - continue BB, losartan #DVT prophylaxis - on coumadin VS,Fishbone, I+O VS, Fishbone, I+O Laboratory Tests 09/15/18 07:43 Red Blood Count 4.22, Mean Corpuscular Volume 90.5, Mean Corpuscular Hemoglobin 28.2, Mean Corpuscular Hemoglobin Concent 31.2 L, Red Cell Distribution Width 13.2, Neutrophils (%) (Auto) 48.2, Lymphocytes (%) (Auto) 35.3, Monocytes (%) (Auto) 15.5 H, Eosinophils (%) (Auto) 0.6, Basophils (%) (Auto) 0.2, Neutrophils # (Auto) 2.4, Lymphocytes # (Auto) 1.8, Monocytes # (Auto) 0.8, Eosinophils # (Auto) 0.0, Basophils # (Auto) 0.0, Calcium Level 9.0 Vital Signs Date Time Temp Pulse Resp B/P (MAP) Pulse Ox O2 Delivery O2 Flow Rate FiO2 09/15/18 18:00 93 Room Air 09/15/18 15:00 98.6 66 18 120/58 (78) 09/15/18 12:00 2.0 SUNIL LEBRON MD Sep 15, 2018 18:20
[2018-09-15] MEDS: VITAMIN D 1,000 INTERNATIONAL UNITS TABLET PO SCH (20:11)
[2018-09-15] MEDS: LOSARTAN 25 MG TAB PO SCH (20:12)
[2018-09-15] MEDS: SLF 3 ML SYR IV SCH (20:12)
[2018-09-15] MEDS: ATORVASTATIN 10 MG TAB PO SCH (20:12)
[2018-09-16] VITALS (19 sets, daily range): BP systolic 120–168; BP diastolic 62–79; O2SAT 91–96
[2018-09-16] MEDS: SLF 3 ML SYR IV SCH ×3 (05:59→21:07)
[2018-09-16 06:13] LABS: HEMATOCRIT 38.3 % (36.0-47.0); HEMOGLOBIN 11.8 g/dl (12.0-15.5); MEAN CORPUSCULAR HGB CONC 30.8 g/dl (32.0-36.5); MEAN CORPUSCULAR VOLUME 90.8 fl (80.0-96.0); PLATELET COUNT, AUTOMATED 215 10^3/uL (150-450); RED BLOOD COUNT 4.22 10^6/uL (4.00-5.40); WHITE BLOOD COUNT 6.4 10^3/uL (4.0-10.0)
[2018-09-16 06:22] LABS: CALCIUM LEVEL 9.3 MG/DL (8.8-10.2); CREATININE FOR GFR 1.05 MG/DL (0.55-1.30); GLOMERULAR FILTRATION RATE 52.5 (>32); INR 2.17; POTASSIUM SERUM 3.4 MEQ/L (3.5-5.1); PROTHROMBIN TIME 24.6 SECONDS (12.1-14.4)
[2018-09-16] MEDS ORDERED: POTASSIUM CHLORIDE 10 MEQ SR TABLET PO ONE (07:15)
--- NOTE | 2018-09-16 07:27 | ECHO ---
DATE OF PROCEDURE: 09/15/2018 Date of : 1930 Age: 87 Gender: Female Height: 61 inches Weight: 127 pounds Body surface area: 1.56 meters squared Inpatient: Progressive Care Unit (PCU), room 3226 REFERRING PHYSICIAN: Dr. David Figueroa INDICATION: Congestive heart failure (CHF). MEASUREMENTS: 2D Measurements: RV: 4.6 cm LV: 4.4 cm Septum: 1.3 cm Posterior wall: 1.2 cm Aortic root: 3.4 cm LA: 4.4 cm LVEF: 70% Doppler Measurements: AV: 1.18 meters per second LVOT: 0.85 meters per second LVOT diameter: 2.0 cm MV-E: 90 Early mitral deceleration time: 222 milliseconds E prime: 6.9, E/E prime ratio: 13.2 Pulmonary capillary wedge pressure: 17.4 mmHg PV: 0.85 meters per second Pulmonary artery acceleration time: 86 milliseconds RVSP: 48 mmHg IVC: 1.8 cm COMMENTS: Underlying atrial fibrillation with somewhat slow ventricular response. No intraventricular conduction disturbance. M-mode and two-dimensional echocardiography was performed with pulsed, continuous wave, color flow and tissue Doppler studies. Mild concentric left ventricular hypertrophy with hyperkinetic wall motion. Mildly dilated left atrium. Unable to define left ventricular (LV) diastolic function with atrial fibrillation but current estimated mean left atrial pressure was mildly increased. Mild to moderately dilated right heart chambers with adequate right ventricular free wall motion and Doppler evidence of moderate pulmonary hypertension. Inferior vena cava (IVC) size upper limits of normal with adequate respiratory collapse against an elevated central venous pressure at this time. Aortic valvular sclerosis without stenosis and only trace insufficiency. Normal aortic root size. Mild mitral annular thickening with normal leaflet excursion and only very mild mitral insufficiency. Normal appearing tricuspid valve with moderately severe tricuspid insufficiency. No apparent intracardiac mass or pericardial effusion.
[2018-09-16 07:33] LABS: MAGNESIUM LEVEL 1.7 MG/DL (1.8-2.4)
[2018-09-16] MEDS: LORazepam 0.5 MG TAB PO SCH ×2 (08:06→21:07)
[2018-09-16] MEDS: TIMOLOL MALEATE 0.5% OPHTH SOLN 5 ML OU SCH (08:08)
[2018-09-16] MEDS: FERROUS SULFATE 325MG TAB PO SCH (08:08)
[2018-09-16] MEDS: METOPROLOL TART 25 MG TABLET PO SCH ×2 (08:08→21:07)
[2018-09-16] MEDS: OSELTAMIVIR PHOSPHATE 30MG CAPSULE PO SCH ×2 (08:08→21:07)
--- NOTE | 2018-09-16 08:08 | IPNPDOC ---
Text Note Date of Service The patient was seen on 09/16/18. NOTE Subjective: Patient seen and examined at bedside. No acute overnight events reported. Patient has no new medical complaints. Still complains of shortness of breath but feels this has improved. Objective: General: NAD, elderly, lying comfortably in bed HEENT: NC/AT, EOMI Lungs: diminished breath sounds, crackles b/l bases Abd: soft, NT, +BS Ext: chronic venous stasis changes, trace peripheral edema ASSESSMENT: 87 yo female for shortness of breath/cough, likely secondary to heart failure complicated with influenza in the setting of afib and COPD. #CHF - appears to be compensated - d/c iv lasix - slight increase in creatinine - home torsemide on hold, continue aldactone - daily weights, I'O's - echocardiogram - telemetry monitoring #afib - continue BB, losartan - on coumadin - digoxin on hold - supratherapeutic on admission - check levels today #COPD - no wheezing noted #HTN - continue BB, losartan #DVT prophylaxis - therapeutic on coumadin VS,Fishbone, I+O VS, Fishbone, I+O Laboratory Tests 09/16/18 05:12 Red Blood Count 4.22, Mean Corpuscular Volume 90.8, Mean Corpuscular Hemoglobin 28.0, Mean Corpuscular Hemoglobin Concent 30.8 L, Red Cell Distribution Width 13.1, Calcium Level 9.3 Vital Signs Date Time Temp Pulse Resp B/P (MAP) Pulse Ox O2 Delivery O2 Flow Rate FiO2 09/16/18 06:00 92 Room Air 09/16/18 04:00 98.5 61 18 120/69 (86) 09/15/18 12:00 2.0 l I&O- Last 24 Hours up to 6 AM 09/16/18 06:00 Intake Total 360 ml Output Total 0 ml Balance 360 ml SUNIL LEBRON MD Sep 16, 2018 08:08
[2018-09-16 08:42] LABS: DIGOXIN LEVEL 0.9 NG/ML (0.5-2.0)
[2018-09-16] MEDS ORDERED: MAG SULF 1GM/100ML (MAG RUN) 1 GM in APPROPRIATE DILUENT 1 EA IV ONE (09:00)
[2018-09-16] MEDS: ATORVASTATIN 10 MG TAB PO SCH (21:05)
[2018-09-16] MEDS: VITAMIN D 1,000 INTERNATIONAL UNITS TABLET PO SCH (21:05)
[2018-09-16] MEDS: LOSARTAN 25 MG TAB PO SCH (21:06)
[2018-09-17] MEDS: SLF 3 ML SYR IV SCH ×3 (05:23→20:40)
[2018-09-17 06:00] VITALS: BP 148/67
[2018-09-17 06:06] LABS: HEMATOCRIT 37.5 % (36.0-47.0); HEMOGLOBIN 11.7 g/dl (12.0-15.5); MEAN CORPUSCULAR HEMOGLOBIN 27.9 pg (27.0-33.0); MEAN CORPUSCULAR HGB CONC 31.2 g/dl (32.0-36.5); MEAN CORPUSCULAR VOLUME 89.3 fl (80.0-96.0); PLATELET COUNT, AUTOMATED 236 10^3/uL (150-450); WHITE BLOOD COUNT 6.1 10^3/uL (4.0-10.0)
[2018-09-17 06:19] LABS: INR 1.76; PROTHROMBIN TIME 20.8 SECONDS (12.1-14.4)
[2018-09-17 06:29] LABS: BLOOD UREA NITROGEN 23 MG/DL (7-18); CALCIUM LEVEL 9.2 MG/DL (8.8-10.2); CARBON DIOXIDE LEVEL 32 MEQ/L (21-32); CHLORIDE LEVEL 102 MEQ/L (98-107); CREATININE FOR GFR 0.88 MG/DL (0.55-1.30); GLOMERULAR FILTRATION RATE > 60.0 (>32); GLUCOSE, FASTING 115 MG/DL (70-100); POTASSIUM SERUM 4.1 MEQ/L (3.5-5.1); SODIUM LEVEL 138 MEQ/L (136-145)
[2018-09-17] MEDS: FERROUS SULFATE 325MG TAB PO SCH (08:13)
[2018-09-17] MEDS: TIMOLOL MALEATE 0.5% OPHTH SOLN 5 ML OU SCH (08:14)
[2018-09-17] MEDS: METOPROLOL TART 25 MG TABLET PO SCH ×2 (08:14→20:40)
[2018-09-17] MEDS: OSELTAMIVIR PHOSPHATE 30MG CAPSULE PO SCH ×2 (08:14→20:39)
[2018-09-17] MEDS: LORazepam 0.5 MG TAB PO SCH ×2 (08:14→20:39)
--- NOTE | 2018-09-17 12:31 | IPNPDOC ---
Text Note Date of Service The patient was seen on 09/17/18. NOTE Subjective: Patient seen and examined at bedside. No acute overnight events reported. Patient has no new medical complaints. Objective: General: NAD, elderly, lying comfortably in bed HEENT: NC/AT, EOMI Lungs: diminished breath sounds Abd: soft, NT, +BS Ext: chronic venous stasis changes, trace peripheral edema ASSESSMENT: 87 yo female for shortness of breath/cough, likely secondary to heart failure complicated with influenza in the setting of afib and COPD. #CHF - appears to be compensated - d/c iv lasix - slight increase in creatinine - home torsemide on hold, continue aldactone - daily weights, I'O's #afib - continue BB, losartan - on coumadin #COPD - no wheezing noted #HTN - continue BB, losartan #DVT prophylaxis - therapeutic on coumadin Dispo: PT clearance pending, anticipate discharge in 24-48 hours VS,Fishbone, I+O VS, Fishbone, I+O Laboratory Tests 09/17/18 05:39 Red Blood Count 4.20, Mean Corpuscular Volume 89.3, Mean Corpuscular Hemoglobin 27.9, Mean Corpuscular Hemoglobin Concent 31.2 L, Red Cell Distribution Width 13.1, Calcium Level 9.2 Vital Signs Date Time Temp Pulse Resp B/P (MAP) Pulse Ox O2 Delivery O2 Flow Rate FiO2 09/17/18 08:14 72 148/67 09/17/18 06:00 97.7 18 94 09/16/18 16:00 Room Air 09/15/18 12:00 2.0 I&O- Last 24 Hours up to 6 AM 09/17/18 06:00 Intake Total 1160 ml Output Total 100 ml Balance 1060 ml SUNIL LEBRON MD Sep 17, 2018 12:31
[2018-09-17 14:00] VITALS: BP 127/63
[2018-09-17] MEDS: WARFARIN SOD 4 MG TAB PO SCH (16:34)
[2018-09-17] MEDS: ATORVASTATIN 10 MG TAB PO SCH (20:39)
[2018-09-17] MEDS: LOSARTAN 25 MG TAB PO SCH (20:39)
[2018-09-17] MEDS: VITAMIN D 1,000 INTERNATIONAL UNITS TABLET PO SCH (20:39)
[2018-09-17 22:00] VITALS: BP 145/75; O2SAT 94
[2018-09-18 06:00] VITALS: BP 149/74
[2018-09-18] MEDS: SLF 3 ML SYR IV SCH (06:06)
[2018-09-18 06:28] LABS: HEMATOCRIT 39.5 % (36.0-47.0); HEMOGLOBIN 12.3 g/dl (12.0-15.5); MEAN CORPUSCULAR HEMOGLOBIN 28.5 pg (27.0-33.0); MEAN CORPUSCULAR HGB CONC 31.1 g/dl (32.0-36.5); MEAN CORPUSCULAR VOLUME 91.4 fl (80.0-96.0); PLATELET COUNT, AUTOMATED 221 10^3/uL (150-450); RED BLOOD COUNT 4.32 10^6/uL (4.00-5.40); WHITE BLOOD COUNT 6.2 10^3/uL (4.0-10.0)
[2018-09-18 06:55] LABS: BLOOD UREA NITROGEN 21 MG/DL (7-18); CALCIUM LEVEL 9.6 MG/DL (8.8-10.2); CARBON DIOXIDE LEVEL 34 MEQ/L (21-32); CHLORIDE LEVEL 102 MEQ/L (98-107); CREATININE FOR GFR 0.92 MG/DL (0.55-1.30); GLOMERULAR FILTRATION RATE > 60.0 (>32); GLUCOSE, FASTING 110 MG/DL (70-100); POTASSIUM SERUM 4.3 MEQ/L (3.5-5.1); SODIUM LEVEL 140 MEQ/L (136-145)
[2018-09-18] MEDS: FERROUS SULFATE 325MG TAB PO SCH (08:16)
[2018-09-18] MEDS: OSELTAMIVIR PHOSPHATE 30MG CAPSULE PO SCH (08:17)
[2018-09-18 08:19] VITALS: BP 149/74
[2018-09-18] MEDS: LORazepam 0.5 MG TAB PO SCH (08:19)
[2018-09-18] MEDS: METOPROLOL TART 25 MG TABLET PO SCH (08:19)
[2018-09-18] MEDS: TIMOLOL MALEATE 0.5% OPHTH SOLN 5 ML OU SCH (08:19)
[2018-09-18] MEDS ORDERED: SPIRONOLACTONE 25 MG TAB PO SCH (09:00)
[2018-09-18] MEDS ORDERED: guaiFENesin ER 600 MG TAB PO SCH (09:00)
[2018-09-18] MEDS ORDERED: TORSEMIDE 10 MG TABLET PO SCH (09:00)
[2018-09-18 11:46] LABS: INR 1.84; PROTHROMBIN TIME 21.6 SECONDS (12.1-14.4)
--- NOTE | 2018-09-18 12:42 | DS.PDOC ---
Discharge Summary General Date of Admission Sep 14, 2018 at 13:25 Date of Discharge 09/18/2018 Discharge Summary PROCEDURES PERFORMED DURING STAY: [None]. ADMITTING DIAGNOSES / DISCHARGE DIAGNOSES: CHF; possibly diastolic Recent influenza infection A. fib COPD HTN DVT prophylaxis COMPLICATIONS/CHIEF COMPLAINT: Shortness of breath HISTORY OF PRESENT ILLNESS: Patient is an 87-year-old female with past medical history of atrial fibrillation, hypertension and COPD who presented to the emergency room with complaints of shortness of breath. Patient was recently diagnosed with influenza and was receiving Tamiflu prior to her arrival. Emergency room, patient was found to have decompensated heart failure and was admitted to hospitalist service for further evaluation and treatment. HOSPITAL COURSE: CHF; possibly diastolic - Clinically has had improvement in symptoms - Appears euvolemic - ECHO 09/16: Unable to evaluate diastolic function with atrial fibrillation; EF of 70% - Daily weights / head of bed elevation / Strict In+Outs - Will c/w Home torsemide / Spironolactone on discharge; s/p Furosemide IV A. fib - c/w Rate control with beta dorothy - Will resume Digoxin on discharge; repeat level noted to be within appropriate range - c/w full anticoagulation with Coumadin - Patient has been advised to take dose of Coumadin tonight; INR check to be completed on 09/20/2018 COPD - no evidence of exacerbation - c/w inhaled therapy as ordered HTN - BP moderately controlled - c/w Metoprolol and Losartan DVT prophylaxis - on full anticoagulation with Coumadin DISCHARGE MEDICATIONS: Please see below. ALLERGIES: Please see below. PHYSICAL EXAMINATION ON DISCHARGE: Vitals (See below) General: Lying in bed, no acute distress, comfortable, AAOx3 HEENT: NC, AT CVS: RRR, +S1S2 Lungs: Fair air entry b/l, -w/r/r Abdomen: Soft, ND, NT Extremities: - Edema, Venous stasis changes noted, - Calf tenderness LABORATORY DATA: Please see below. ACTIVITY: [As tolerated]. DISCHARGE PLAN: Follow up with Dr. Vi Lopez in 7 days Remain compliant with treatment plan and medications Return to the ER if you experience any problems DISPOSITION: V AL DISCHARGE CONDITION: [Stable]. TIME SPENT ON DISCHARGE: Greater than [35] minutes. Vital Signs/I&Os Vital Signs Date Time Temp Pulse Resp B/P (MAP) Pulse Ox O2 Delivery O2 Flow Rate FiO2 09/18/18 08:19 68 149/74 09/18/18 06:00 97.9 17 96 09/17/18 22:00 Room Air 09/15/18 12:00 2.0 I&O- Last 24 Hours up to 6 AM 09/18/18 06:00 Intake Total 640 ml Output Total 350 ml Balance 290 ml Laboratory Data Labs 24H Laboratory Tests 2 09/18/18 05:25: Nucleated Red Blood Cells % (auto) 0.0, Anion Gap 4L, Glomerular Filtration Rate > 60.0, Blood Urea Nitrogen 21H, Creatinine 0.92, Sodium Level 140, Potassium Level 4.3, Chloride Level 102, Carbon Dioxide Level 34H, Calcium Level 9.6 09/18/18 10:50: Prothrombin Time 21.6H, Prothromb Time International Ratio 1.84 CBC/BMP Laboratory Tests 09/18/18 05:25 Red Blood Count 4.32, Mean Corpuscular Volume 91.4, Mean Corpuscular Hemoglobin 28.5, Mean Corpuscular Hemoglobin Concent 31.1 L, Red Cell Distribution Width 13.0, Calcium Level 9.6 Microbiology Microbiology 09/14/18 Blood Culture - Preliminary, Resulted No Growth after 72 hours. All specime... 09/14/18 Blood Culture - Preliminary, Resulted No Growth after 72 hours. All specime... Discharge Medications Scheduled Ascorbic Acid (Vitamin C) 500 Mg Tablet, 500 MG PO DAILY, (Reported) Atorvastatin Calcium (Atorvastatin Calcium) 10 Mg Tablet, 10 MG PO QHS, (Report ed) Cholecalciferol (Vitamin D3) (Vitamin D3) 2,000 Unit Tablet, 2,000 UNIT PO QHS, (Reported) Digoxin (Digoxin) 125 Mcg Tablet, 125 MCG PO DAILY, (Reported) Ferrous Sulfate (Ferrous Sulfate) 325 Mg Tablet, 325 MG PO DAILY, (Reported) TAKES AT NOON Lorazepam (Lorazepam) 0.5 Mg Tablet, 0.25 MG PO BID, (Reported) Losartan Potassium (Losartan Potassium) 25 Mg Tablet, 12.5 MG PO QHS, (Reported) Metoprolol Tartrate (Metoprolol Tartrate) 25 Mg Tablet, 25 MG PO BID, (Reported) Mineral Oil/Petrolatum,White (Artificial Tears Eye Ointment) 3.5 Gm Oint...g., 1 DOSE OU QHS, (Reported) Multivitamin (Multivitamins) 1 Each Capsule, 1 CAP PO DAILY, (Reported) Oseltamivir Phosphate (Tamiflu) 75 Mg Capsule, 75 MG PO BID, (Reported) STARTED 09/13/18 FOR 5 DAYS Spironolactone (Spironolactone) 25 Mg Tablet, 25 MG PO DAILY, (Reported) Timolol Maleate (Timolol Maleate) 0.5% Drop.daily, 1 DROP OU DAILY, (Reported) Torsemide (Torsemide) 10 Mg Tablet, 10 MG PO DAILY, (Reported) Vit C/Vit E AC/Lut/Copper/Zinc (Preservision Lutein Softgel) 1 Each Capsule, 1 CAP PO BID, (Reported) Warfarin Sodium (Coumadin) 4 Mg Tablet, 4 MG PO 3XW, (Reported) QPM: MON, WED, FRI Scheduled PRN Acetaminophen (Tylenol) 325 Mg Tablet, 650 MG PO Q4H PRN for PAIN, (Reported) Milk Of Magnesia (Milk of Magnesia) 2,400 Mg/10 Ml Oral.susp, 15 ML PO DAILY PRN for CONSTIPATION, (Reported) Polyvinyl Alcohol (Artificial Tears) 15 Ml Drops, 1.4 % OU TID PRN for DRY EYES, (Reported) 1 DROP Allergies Coded Allergies: nitrofurantoin (Verified Allergy, Intermediate, HIVES, 09/12/18) Quinolones (Verified Allergy, Unknown, 09/12/18) lisinopril (Verified Adverse Reaction, Intermediate, cough, 09/12/18) phenylephrine (Verified Adverse Reaction, Mild, DIALETED PUPILS, 09/12/18) GEORGE NEVAREZ MD Sep 18, 2018 12:42
== END 2018-09-18 13:04 | DRG 291 ==
LOC: M ED 10:19 → EDBD 10:19 → M ED INP 13:25 → M PCU 09-15 14:56 → M MSPAV 09-16 18:26
PROVIDERS: ADMIT Internal Medicine; ATTEND Internal Medicine
DX: I13.0 Hypertensive heart and chronic kidney disease with heart failure and stage 1 through stage 4 chronic kidney disease, or unspecified chronic kidney disease (principal); I50.31 Acute diastolic (congestive) heart failure; I48.91 Unspecified atrial fibrillation; J44.9 Chronic obstructive pulmonary disease, unspecified; Z79.899 Other long term (current) drug therapy; Z88.8 Allergy status to other drugs, medicaments and biological substances; Z79.01 Long term (current) use of anticoagulants; N18.3 Chronic kidney disease, stage 3 (moderate); E11.9 Type 2 diabetes mellitus without complications; M19.90 Unspecified osteoarthritis, unspecified site; E78.5 Hyperlipidemia, unspecified